=== PATIENT | female | born 1990 | race Caucasian/White ===

== ENCOUNTER 2016-11-05 17:29 | Emergency (ER) | payer OTHER ==
[2016-11-05 17:41] VITALS: BP 131/96
--- NOTE | 2016-11-05 18:42 | UC ---
Complaint Female HPI - HPI Summary HPI Summary: MILD URINARY PRESSURE AND FREQUENCY FOR TWO DAYS. NO FEVER. NO ABDOMINAL PAIN. NO BACK PAIN. - History Of Current Complaint Chief Complaint: UCGU Stated Complaint: POSS UTI Time Seen by Provider: 11/05/16 17:48 Hx Obtained From: Patient Hx Last Menstrual Period: 10/12/16 Onset/Duration: Gradual Onset, Lasting Days, Still Present Timing: Intermittent Severity Initially: Mild Severity Currently: Mild Character: Dull, Cramping Aggravating Factor(s): Urination Associated Signs And Symptoms: Negative: Fever, Back Pain, Vaginal Bleeding/ Discharge, Nausea, Vomiting(# Of Episodes =) - Risk Factors Ectopic Risk Factor: Negative - Allergies/Home Medications Allergies/Adverse Reactions: Allergies Allergy/AdvReac Type Severity Reaction Status Date / Time No Known Allergies Allergy Verified 11/05/16 17:41 Home Medications: Home Medications NK [No Home Medications Reported] 11/05/16 [History Confirmed 11/05/16] PMH/Surg Hx/FS Hx/Imm Hx Previously Healthy: Yes - Surgical History Surgical History: None - Family History Known Family History: Positive: Unknown - MOTHER WAS MANDAEN MORPHOLOGIST - Social History Lives: With Family Alcohol Use: Rare Substance Use Type: None Smoking Status (MU): Never Smoked Tobacco Review of Systems Constitutional: Negative Skin: Negative Eyes: Negative ENT: Negative Respiratory: Negative Cardiovascular: Negative Gastrointestinal: Negative Genitourinary: Dysuria, Urgency Motor: Negative Neurovascular: Negative Musculoskeletal: Negative Neurological: Negative Psychological: Negative All Other Systems Reviewed And Are Negative: Yes Physical Exam Triage Information Reviewed: Yes Appearance: Well-Appearing, No Pain Distress, Well-Nourished Vital Signs: Initial Vital Signs Temp 99.0 F 11/05/16 17:39 Pulse 106 11/05/16 17:39 Resp 18 11/05/16 17:39 BP 131/96 11/05/16 17:39 Pulse Ox 99 11/05/16 17:39 Vital Signs Reviewed: Yes Eye Exam: Normal ENT Exam: Normal ENT: Positive: Normal ENT inspection, Hearing grossly normal, Pharynx normal, TMs normal Dental Exam: Normal Neck exam: Normal Neck: Positive: Supple, Nontender, No Lymphadenopathy Respiratory Exam: Normal Respiratory: Positive: Chest non-tender, Lungs clear, Normal breath sounds, No respiratory distress, No accessory muscle use Cardiovascular Exam: Normal Cardiovascular: Positive: RRR, No Murmur, Pulses Normal, Brisk Capillary Refill Abdominal Exam: Normal Abdomen Description: Positive: Nontender, No Organomegaly. Negative: CVA Tenderness (R), CVA Tenderness (L) Musculoskeletal Exam: Normal Neurological Exam: Normal Psychological Exam: Normal Skin Exam: Normal Complaint Female Dx - Differential Dx/Diagnosis Differential Diagnosis/HQI/PQRI: Renal Colic, Ureteral Stone, Urinary Tract Infection Provider Diagnoses: DYSURIA Discharge - Discharge Plan Condition: Stable Disposition: HOME Patient Education Materials: Kidney Stones (ED), Dysuria (ED) Referrals: [facility] [Outside] Additional Instructions: PLEASE SEEK EVALUATION AT THE EMERGENCY DEPARTMENT IF YOUR SYMPTOMS WORSEN, OR IF NEW SYMPTOMS DEVELOP.
== END 2016-11-05 18:40 | disposition home or self-care (01) ==
LOC: UCEAST 17:29
DX: R30.0 Dysuria (principal)
CPT/HCPCS: 81003; 99201; G0463

== ENCOUNTER 2017-12-17 19:37 | Emergency (ER) | payer OTHER ==
[2017-12-17 20:10] VITALS: BP 110/73
--- NOTE | 2017-12-17 20:13 | UC ---
Throat Pain/Nasal Jamie HPI - HPI Summary HPI Summary: 27 yo female presents with a sore throat and headache for the last 2 days. She is concerned because her daughter was dx'd with strep throat today. Pt denies fever, chills, cough, SOB, chest pain, or rash. - History of Current Complaint Chief Complaint: UCGeneralIllness Stated Complaint: ST,FATIGUE,HEADACH Time Seen by Provider: 12/17/17 20:13 Hx Obtained From: Patient Hx Last Menstrual Period: 11/19/17 Onset/Duration: Sudden Onset Severity: Moderate Pain Intensity: 5 Pain Scale Used: 0-10 Numeric - Allergies/Home Medications Allergies/Adverse Reactions: Allergies Allergy/AdvReac Type Severity Reaction Status Date / Time No Known Allergies Allergy Verified 12/17/17 20:10 PMH/Surg Hx/FS Hx/Imm Hx - Additional Past Medical History Additional PMH: None - Surgical History Surgical History: Yes Surgery Procedure, Year, and Place: [facility] - Family History Known Family History: Positive: Unknown - MOTHER WAS [employer] INSPECTOR [employer] - Social History Occupation: Employed Full-time Lives: With Family Alcohol Use: Rare Substance Use Type: None Smoking Status (MU): Never Smoked Tobacco Review of Systems Constitutional: Fatigue Skin: Negative Eyes: Negative ENT: Sore Throat Respiratory: Negative Cardiovascular: Negative Gastrointestinal: Negative Neurovascular: Negative Musculoskeletal: Negative Neurological: Headache Psychological: Negative All Other Systems Reviewed And Are Negative: Yes Physical Exam - Summary Physical Exam Summary: GENERAL: NAD. Mildly ill appearing SKIN: No rashes, sores, lesions, or open wounds. HEENT: Head: AT/NC Eyes: Conjunctiva clear without inflammation or discharge. Ears: Hearing grossly normal. TMs intact, no bulging, erythema, or edema. Nose: Nasal mucosa pink and moist. NTTP maxillary and frontal sinus. Throat: Posterior oropharynx moderate erythema. No tonsillar enlargement. No exudates. Uvula midline. No hoarse voice or muffled voice. NECK: Supple. Mildly tender tonsillar LAD CHEST: CTAB. No r/r/w. No accessory muscle use. Breathing comfortably and in no distress. CV: RRR. Without m/r/g. Pulses intact. Brisk cap refill. NEURO: Alert. CN II-XII grossly intact. PSYCH: Age appropriate behavior. Triage Information Reviewed: Yes Vital Signs: Initial Vital Signs Temp 99.2 F 12/17/17 20:06 Pulse 94 12/17/17 20:06 Resp 18 12/17/17 20:06 BP 110/73 12/17/17 20:06 Pulse Ox 100 12/17/17 20:06 Laboratory Tests 12/17/17 20:32 Group A Strep Rapid Negative Vital Signs Reviewed: Yes Throat Pain/Nasal Course/Dx - Course Course Of Treatment: POC strep negative. Given pt's symptoms and exposure to strep, there is a high suspicion for strep pharyngitis. Pt was agreeable to taking tylenol/ibuprofen and monitoring her symptoms for another 2-3 days...if no improvement she will begin anbx. - Differential Dx/Diagnosis Provider Diagnoses: Pharyngitis Discharge - Sign-Out/Discharge Documenting (check all that apply): Patient Departure - Discharge Plan Condition: Stable Disposition: HOME Prescriptions: Amoxicillin PO (*) [Amoxicillin 500 MG CAP*] 500 mg PO Q12H #14 cap Patient Education Materials: Pharyngitis (ED) Referrals: Lori Manning MD [Primary Care Provider] - Additional Instructions: If you develop a fever, shortness of breath, chest pain, new or worsening symptoms - please call your PCP or go to the ED. - Billing Disposition and Condition Condition: STABLE Disposition: Home
== END 2017-12-17 21:00 | disposition home or self-care (01) ==
LOC: UCEAST 19:37
DX: J02.9 Acute pharyngitis, unspecified (principal); R53.83 Other fatigue
CPT/HCPCS: 87651; 99211; G0463

== ENCOUNTER 2018-01-29 00:19 | Emergency (ER) | payer OTHER ==
[2018-01-29 01:01] LABS: ABS Basophils 0.1 10^3/ul (0-0.2); ABS Eosinophils 0.2 10^3/ul (0-0.6); ABS Lymphocytes 3.1 10^3/ul (1.0-4.8); ABS Monocytes 0.5 10^3/ul (0-0.8); ABS Neutrophils 1.9 10^3/ul (1.5-7.7); ABS Nucleated RBC 0 10^3/ul; Eosinophil % 4.2 % (0-6); Hematocrit 39 % (35-47); Hemoglobin 13.5 g/dl (12.0-16.0); Lymphocyte % 52.7 % (25-47); Mean Corpuscular HGB Conc 35 g/dl (31-36); Mean Corpuscular Hemoglobin 32 pg (27-31); Mean Corpuscular Volume 92 fL (80-97); Nucleated Red Blood Cells % 0; Platelet Count 230 10^3/ul (150-450); Red Blood Count 4.24 10^6/ul (4.00-5.40); Red Cell Distribution Width 13 % (10.5-15); White Blood Count 5.8 10^3/ul (3.5-10.8)
[2018-01-29] MEDS ORDERED: Lidocaine 2% VISCOUS* 15 ML UDC PO ONE (01:05)
[2018-01-29] MEDS ORDERED: Famotidine TAB* 20 MG PO ONE (01:05)
[2018-01-29] MEDS ORDERED: Al Hydrox/Mg Hydrox/Simet LIQ* 30 ML UDC PO ONE (01:05)
--- NOTE | 2018-01-29 01:06 | ED ---
Abdominal Pain/Female - HPI Summary HPI Summary: Pt is a 27 y/o female who presents to the ED c/o abdominal pain. She states she s had the pain for a few days now, and it is worsening. The pain is 5/10 in severity and is exacerbated by lying flat. The pain is located in her upper abdomen, and feels like pressure and pinching. She also c/o nausea and constipation. Pt was able to burp and pass gas yesterday, but now feels bloated. She has not had a BM since yesterday. Pt denies any dysuria, fever, shakes, chills, or decreased appetite. She states that it feels harder to swallow food now. She denies any injury to her abdomen. FHx GERD. No PMHx of ovarian cysts, pancreatitis, or cholecystitis. LKMP 4 weeks ago. - History of Current Complaint Chief Complaint: EDAbdPain Stated Complaint: ABD PAIN Time Seen by Provider: 01/29/18 00:49 Hx Obtained From: Patient Hx Last Menstrual Period: 11/19/17 ?: No Onset/Duration: Gradual Onset, Lasting Days - 2-3, Worse Since Timing: Constant Severity Currently: Moderate Pain Intensity: 5 Pain Scale Used: 0-10 Numeric Location: Other - Upper abdomen Radiates: No Character: Other: - Pressure, pinching Aggravating Factor(s): Other: - Lying flat Alleviating Factor(s): Nothing Associated Signs and Symptoms: Positive: Constipation, Nausea. Negative: Fever , Urinary Symptoms, Decreased Appetite Allergies/Adverse Reactions: Allergies Allergy/AdvReac Type Severity Reaction Status Date / Time No Known Allergies Allergy Verified 12/17/17 20:10 PMH/Surg Hx/FS Hx/Imm Hx Endocrine/Hematology History: Denies: Hx Diabetes, Hx Thyroid Disease Cardiovascular History: Denies: Hx Hypertension Respiratory History: Denies: Hx Asthma, Hx Chronic Obstructive Pulmonary Disease (COPD) GI History: Denies: Hx Gall Bladder Disease, Hx Ulcer History: Denies: Other Problems/Disorders - Ovarian cysts - Surgical History Surgery Procedure, Year, and Place: [facility] Infectious Disease History: No Infectious Disease History: Denies: Hx Hepatitis, Hx Human Immunodeficiency Virus (HIV), Traveled Outside the [place] in Last 30 Days - Family History Known Family History: Positive: Other - GERD - Social History Alcohol Use: Rare Hx Substance Use: No Substance Use Type: Reports: None Hx Tobacco Use: No Smoking Status (MU): Never Smoked Tobacco Review of Systems Negative: Fever, Chills Positive: Abdominal Pain, Nausea, Other - constipation, NEGATIVE: decreased appetite Negative: dysuria All Other Systems Reviewed And Are Negative: Yes Physical Exam - Summary Physical Exam Summary: Appearance: Well appearing, no pain distress Skin: warm, dry, reflects adequate perfusion Head/face: normal Eyes: EOMI, JO ENT: normal Neck: supple, non-tender Respiratory: CTA, breath sounds present Cardiovascular: RRR, pulses symmetrical Abdomen: non-tender, soft, no CVA tenderness Bowel Sounds: present Musculoskeletal: normal, strength/ROM intact Neuro: normal, sensory motor intact, A&Ox3 Triage Information Reviewed: Yes Vital Signs On Initial Exam: Initial Vitals Temp Pulse Resp BP Pulse Ox 98.4 F 103 18 133/97 100 01/29/18 00:21 01/29/18 00:21 01/29/18 00:21 01/29/18 00:21 01/29/18 00:21 Vital Signs Reviewed: Yes Diagnostics - Vital Signs Vital Signs Temp Pulse Resp BP Pulse Ox 01/29/18 00:21 98.4 F 103 18 133/97 100 - Laboratory Result Diagrams: 01/29/18 00:54 01/29/18 00:54 Lab Statement: Any lab studies that have been ordered have been reviewed, and results considered in the medical decision making process. - Radiology Abdomen XR Xray Interpretation: Positive (See Comments) - Increased stool burden. Pending official radiology report. Radiology Interpretation Completed By: ED Physician Abdominal Pain Fem Course/Dx - Course Course Of Treatment: Patient with left upper quadrant abdominal tenderness that is mild in nature. He has been associated with some mild heartburn. She received oral medications for this with some relief. She also had an x-ray consistent for possible constipation as well. We will treat both. Her laboratories are benign. Abdomen is nonsurgical. Discharged in good condition. - Diagnoses Differential Diagnosis: Positive: Constipation, Diverticulitis, Gall Bladder Disease, Pancreatitis, Peptic Ulcer Disease, Provider Diagnoses: Constipation, Gastritis Discharge - Sign-Out/Discharge Documenting (check all that apply): Patient Departure - Discharge - Discharge Plan Condition: Stable Disposition: HOME Prescriptions: Famotidine TAB* [Pepcid 20 MG TAB*] 20 mg PO BID PRN #20 tab PRN Reason: Heartburn Omeprazole CAP* [Prilosec CAP* 20 MG] 20 mg PO BEDTIME #30 jose. Polyethylene Glycol 3350 BTL* [Miralax] 17 gm PO TID PRN #1 btl PRN Reason: Constipation Sucralfate [Carafate] 1 gm PO QID PRN #40 tablet PRN Reason: stomach pain Patient Education Materials: Gastritis (ED) Referrals: Lori Manning MD [Primary Care Provider] - Additional Instructions: Tylenol as needed for discomfort. Avoid aspirin, Aleve, ibuprofen and alcohol. Return with vomiting blood, increased pain, fever, new symptoms or other concerns as discussed. - Billing Disposition and Condition Condition: STABLE Disposition: Home - Attestation Statements Document Initiated by Mercedes: Yes Documenting Scribe: Myra Forte Provider For Whom Leslyee is Documenting (Include Credential): Rob Quevedo MD Scribe Attestation: Myra Vieira, scribed for Rob Quevedo MD on 01/29/18 at 0219. Scribe Documentation Reviewed: Yes Provider Attestation: The documentation as recorded by the Myra gould accurately reflects the service I personally performed and the decisions made by , Rob Quevedo MD
[2018-01-29 02:25] VITALS: BP 120/79
--- NOTE | 2018-01-29 07:53 | RAD ---
INDICATION: Left lower quadrant abdominal pain. COMPARISON: There are no relevant prior studies available for comparison. TECHNIQUE: A single frontal supine film of the abdomen was obtained. FINDINGS: The small bowel and colon appear nondistended. There is a moderate amount retained stool present. There are couple small calcific densities which project over the pelvis on the right side likely representing phleboliths. IMPRESSION: NO EVIDENCE FOR OBSTRUCTION. R0
== END 2018-01-29 02:25 | disposition home or self-care (01) ==
LOC: ED 00:19
DX: K59.00 Constipation, unspecified (principal); K29.70 Gastritis, unspecified, without bleeding; R10.9 Unspecified abdominal pain; R11.0 Nausea
CPT/HCPCS: 36415; 74018; 80053; 83605; 83690; 84702; 85025; 86140; 99283; A9270-GY

== ENCOUNTER 2019-03-15 16:35 | Emergency (ER) | payer OTHER ==
--- OUTSIDE RECORDS SUMMARY | 2019-03-15 16:40 | XMS REPORT | Continuity of Care Document ---
:1990 External Reference #:[id number] Author Name Sara Myers PA-C Address [address] [place] [id number] Care Team Providers Name Role Phone Afsaneh Lauren NP Care Team Information Care Transition Coordinator [phone] Lori Manning MD Care Team Information Care Transition Coordinator [phone] Problems Active Problems Provider Date Digestive symptom Sara Myers PA-C Onset: 12/23/2018 Sore throat symptom Sara Myers PA-C Onset: 12/23/2018 Abdominal pain Sara Myers PA-C Onset: 12/23/2018 Gastro-esophageal reflux disease with Sara Myers PA-C Onset: 08/20 esophagitis Epigastric pain Sara Myers PA-C Onset: 04/29/2018 Enterobiasis Sara Myers PA-C Onset: 03/13/2018 Gastroduodenitis Sara Myers PA-C Onset: 03/13/2018 Left upper quadrant pain Sara Myers PA-C Onset: 03/13/2018 Gastroesophageal reflux disease Sara Myers PA-C Onset: 03/13/2018 Social History Type Date Description Comments Sex Unknown Tobacco Use Start: Unknown Patient has never smoked Smoking Status Reviewed: 12/23/18 Patient has never smoked Allergies, Adverse Reactions, Alerts Description No Known Drug Allergies Medications Active Medications SIG Qnty Indications Ordering Provider Date Omeprazole 1 by mouth 30caps K21.9 Syed Ch DO 12/23/[address] Romano 1 by mouth bid 60tabs K21.0 Sandra 08/20/2018 40mg Tablets MD Kallie Immunizations Description No Information Available Vital Signs Date Vital Result Comment 12/23/2018 9:39am Height 66 inches 5'6" Weight 121.00 lb BMI (Body Mass Index) 19.5 kg/m2 08/20/2018 2:14pm Height 66 inches 5'6" Weight 126.00 lb BP Systolic 126 mmHg BP Diastolic 80 mmHg Heart Rate 97 /min BMI (Body Mass Index) 20.3 kg/m2 Results Test Date Facility Test Result H/L Range Note Laboratory test [facility] Breath Test NEGATIVE finding [address] [place] [id number] [phone] Laboratory test [facility] Pancreatic 494 g/G 1 finding 9 Elastase-1 Stool 1 Adult and Pediatric Reference Ranges for Pancreatic Elastase-1: Normal: >200 mcg/g Moderate Pancreatic Insufficiency: 100-200 mcg/g Severe Pancreatic Insufficiency: <100 mcg/g Elastase-1 (E-1) assay results are expressed in mcg/g, which represent mcg E1/g feces. It is not necessary to interrupt enzyme substitution therapy. Test Performed by: [facility]/[address] [address] Procedures Date Code Description Status 12/30/2018 52764 Breath Hydrogen Completed Medical Devices Description No Information Available Encounters Type Date Location Provider Dx Diagnosis Office Visit 12/23/2018 [facility]enter[facility] Sara Frank R10.10 Upper abdominal 9:45a [facility], pain, unspecified DOMINICK R07.0 Pain in throat R19.4 Change in bowel habit Office Visit 08/20/2018 Mary Frank R10.13 Epigastric pain 2:15p [facility] PA-C K21.0 Gastro-esophageal reflux disease with esophagitis R10.12 Left upper quadrant pain K29.70 Gastritis, unspecified, without bleeding Assessments Date Code Description Provider 12/30/2018 R10.13 Epigastric pain Sara Myers PA-C 12/30/2018 R10.12 Left upper quadrant pain Sara Myers, PA-C 12/30/2018 K21.0 Gastro-esophageal reflux disease with Sara Frank Lucia PA-C esophagitis 12/23/2018 R10.10 Upper abdominal pain, unspecified Sara Frank Lucia PA -C 12/23/2018 R07.0 Pain in throat Sara Frank BLAS Myers-C 12/23/2018 R19.4 Change in bowel habit Sara PhilipBLAS [place]-C 08/20/2018 R10.13 Epigastric pain Sara PalaciosRanulfo Myers PA-C 08/20/2018 K21.0 Gastro-esophageal reflux disease with Sara LTWAN Gil[place]C esophagitis 08/20/2018 R10.12 Left upper quadrant pain Sara Frank Lucia PA-C 08/20/2018 K29.70 Gastritis, unspecified, without bleeding Sara Myers PA-C Plan of Treatment No Information Available Functional Status Description No Information Available Mental Status Description No Information Available Referrals Description No Information Available
--- OUTSIDE RECORDS SUMMARY | 2019-03-15 16:40 | XMS REPORT | Continuity of Care Document ---
:1990 External Reference #:[id number] Author Name Lori Manning M.D. Address [address] [facility] [place] [address] Care Team Providers Name Role Phone Lori Manning M.D. - Family Medicine Care Team Information Pumper Gauger Unavailable Problems Active Problems Provider Date Gastroesophageal reflux disease Lori Manning M.D. Onset: 02/25/2019 Irritable bowel syndrome Lori Manning M.D. Onset: 02/25/2019 Resolved Problems Epigastric pain Chapo Marti M.D. Onset: 12/18/2018 Resolved: 02/25/2019 Acute gastritis Chapo Marti M.D. Onset: 12/18/2018 Resolved: 02/25/2019 Social History Type Date Description Comments Sex Unknown Tobacco Use Start: Unknown Never Smoked Cigarettes Smoking Status Reviewed: 02/25/19 Never Smoked Cigarettes ETOH Use Denies alcohol use Recreational Drug Use Denies Drug Use Tobacco Use Start: Unknown Nonsmoker Exercise Type/Frequency Exercises regularly cycle, running 4x Allergies, Adverse Reactions, Alerts Description No Known Drug Allergies Medications Active Medications SIG Qnty Indications Ordering Provider Date Famotidine take one tablet Unknown 20mg Tablets by mouth twice a day Omeprazole 1 by mouth every Unknown 40mg Capsules day DR History Medications Nuvaring insert one ring 3units Z30.09 09/09/2018 - 0.12-0.015mg/24HR vaginally, SRINIVAS Chapa 02/25/2019 Ring retain x 3 weeks, then remove, allow withdrawal bleed, and reinsert new ring sun after menses Immunizations Description No Information Available Vital Signs Date Vital Result Comment 02/25/2019 1:04pm BP Systolic 120 mmHg BP Diastolic 76 mmHg Heart Rate 78 /min Body Temperature 98.3 F Respiratory Rate 16 /min Height 66.5 inches 5'6.50" Weight 121.00 lb BMI (Body Mass Index) 19.2 kg/m2 12/18/2018 9:48am BP Systolic 108 mmHg BP Diastolic 60 mmHg Heart Rate 78 /min Body Temperature 98.8 F Respiratory Rate 16 /min Height 66 inches 5'6" Weight 120.38 lb BMI (Body Mass Index) 19.4 kg/m2 Results Test Date Facility Test Result H/L Range Note Comprehensive Metabolic 10/29/2018 Omar Miya(a) Sodium 137 mEq/L 134-149 Prof Potassium 4.5 mEq/L 3.6-5.5 Chloride 99 mEq/L 94-112 Carbon Dioxide 24 mEq/L 21-32 Glucose 93 mg/dL 70-105 BUN 13 mg/dL 6-26 Creatinine 0.8 mg/dL 0.6-1.4 BUN/Creat Ratio 16.3 CALC 8.0-36.0 Calcium 9.4 mg/dL 8.6-10.2 Total Protein 7.4 g/dL 6.4-8.3 Albumin 4.6 g/dL 3.8-5.5 Globulin 2.8 g/dL 2.0-4.8 A/G Ratio 1.6 CALC 0.6-2.3 Alk. Phosphatase 37 U/L 30-110 Alt (SGPT) 12 U/L 7-35 Ast (Sgot) 22 U/L 5-34 Total Bilirubin 0.7 mg/dL 0.2-1.3 GFR Non- >60 ml/min/1.73m^ >=60 GFR >60 ml/min/1.73m^ >=60 Lipid Profile 10/29/2018 Omar Miya(a) Cholesterol 139 mg/dL 120- 200 Triglycerides 70 mg/dL 30-200 HDL Cholesterol 57 mg/dL 30-85 LDL (Calculated) 68 CALC 0-129 VLDL Cholesterol 14 mg/dL 0-50 HDL Risk Factor 2.4 CALC 0.0-4.4 CBC Electronic Fma 10/29/2018 Omar Miya(a) WBC 4.0 x10^3/UL 4.0- 10.0 RBC 4.23 x10^6/UL 3.93-6.00 HGB 13.5 g/dL 12.0-17.0 HCT 39 % 35-50 MCV 92.0 fL 80.0-95.0 MCH 31.9 pg 25.6-32.2 MCHC 34.7 g/dL 32.2-36.0 RDW-CV 12.5 % 11.6-14.4 PLT 232 x10^3/UL 163-400 MPV 9.3 fL Low 9.4-12.4 Megan# 1.61 x10^3/UL 1.56-6.13 Lymph# 1.87 x10^3/UL 1.18-3.74 Pleasants# 0.41 x10^3/UL 0.24-0.82 Eos # 0.1 x10^3/UL 0.0-0.5 Baso # 0.02 x10^3/UL 0.01-0.08 Megan% 39.9 % 34.0-70.0 Lymph % 46.4 % 20.0-52.0 Pleasants% 10.2 % 5.0-12.0 Eos% 3.0 % 0.7-7.0 Baso% 0.5 % 0.1-1.2 Procedures Description No Information Available Medical Devices Description No Information Available Encounters Type Date Location Provider Dx Diagnosis Office Visit 12/18/2018 [facility] Chapo Marti, R10.13 Epigastric pain 9:40a Rocco K29.00 Acute gastritis without bleeding Office Visit 10/22/2018 4:00p [facility] 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 examination without abnormal findings 02/25/2019 K58.9 Irritable bowel syndrome without diarrhea Lori Manning M.D. 02/25/2019 K21.9 Gastro-esophageal reflux disease without Lori Manning M.D. esophagitis 02/25/2019 L65.9 Nonscarring hair loss, unspecified Lori Manning M.D. 02/25/2019 L29.9 Pruritus, unspecified Lori Manning M.D. 12/18/2018 R10.13 Epigastric pain Chapo Marti M.D. 12/18/2018 K29.00 Acute gastritis without bleeding Chapo Marti M.D. 10/29/2018 Z00.00 Encntr for general adult medical exam w/o Lori Manning M.D. abnormal findings 10/22/2018 G44.84 Primary exertional headache SRINIVAS Simmons 10/22/2018 Z30.40 Encounter for surveillance of SRINIVAS Simmons contraceptives, unspecified 09/09/2018 Z30.09 Encounter for other general counseling and SRINIVAS Simmons advice on contrac Plan of Treatment 02/25/2019 - Lori Manning M.D.Z00.00 Encounter for general adult medical examination without abnormal findingsComments:Encourage an active and healthy lifestyle with proper eating habits including fruits, vegetables, 6-8 glasses of water a day and monitoring portion size. Recommend 30 minutes of daily physical activityincluding walking, aerobic exercise, sports, yoga or dance. Any activity is better than no activity.Recommend routine eye and dental exams. Next physical is due in 1-2 years. Recommend annual influenza [id number] Irritable bowel syndrome without diarrheaComments:FODMAP dietK21.9 Gastro-esophageal reflux disease without esophagitisComments:stable on regimen, call if symptoms [id number] Nonscarring hair loss, unspecifiedComments:can be normal stopping control; call if persistent for another 3 months, take women's multi dlnewxeU13.9 Pruritus, unspecifiedComments:try spray deodorant to minimize perspiration, possible sweat exacerbating; call if persistent, ok touse steroid cream sparingly, no more than a week at timeAllComments:Medication Management Patient Understands medications she's taking? Yes No Are there Barriers to Adherence? Yes No Has the patient been asked about herbal supplements and therapies, and OTC meds? Yes No The patient was instructed to call if symptoms of abdominal pain worsen. Functional Status Description No Information Available Mental Status Description No Information Available Referrals Description No Information Available
--- OUTSIDE RECORDS SUMMARY | 2019-03-15 16:40 | XMS REPORT | Continuity of Care Document ---
:1990 External Reference #:[id number] Author Name Sean Suazo M.D. 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 Onset: 10/11/2016 Vitreous opacities Sean Suazo M.D. Onset: 10/11/2016 Myopia Sean Suazo M.D. Onset: 10/11/2016 Internal hordeolum Sean Suazo M.D. Onset: 10/11/2016 Social History Type Date Description Comments Sex Unknown ETOH Use Denies alcohol use Tobacco Use Start: Unknown Patient has never smoked Smoking Status Reviewed: 01/22/19 Patient has never smoked Allergies, Adverse Reactions, Alerts Description No Known Drug Allergies Medications Active Medications SIG Qnty Indications Ordering Provider Date Allergy Eye Drops 1 drop both eyes Sean Suazo, 10/10/2016 0.025% twice a day as M.D. Solution needed Ortho Tri-Cyclen Lo Unknown 0.18/0.215/0.25 mg-25 mcg Tablets Clotrimazole Unknown 1% Cream Omeprazole Take 1 Capsule By Unknown 40mg Capsules Mouth Every Day DR 30 Minutes Before A Meal Immunizations Description No Information Available Vital Signs Description No Information Available Results Description No Information Available Procedures Description No Information Available Medical Devices Description No Information Available Encounters Description No Information Available Assessments Date Code Description Provider 01/22/2019 H43.392 Other vitreous opacities, left eye Sean Suazo M.D. 01/22/2019 H52.13 Myopia, bilateral Sean Suazo M.D. Plan of Treatment 01/22/2019 - Sean Suazo M.D.H43.392 Other vitreous opacities, left eyeComments:Smoking can increase the risk of developing or worsening any eye related disease, as well as affect your overall health. If you are a smoker, we strongly recommend that you quit.If you are not a smoker, we strongly recommend that you do not start. You have Vitreous Floaters. If you have any new or changes in your floaters or flashing lights, please contact this office.Follow up:2 Year Follow Up DFE You can expect to have your eyes dilated at your next visit. If Dr. Suazo orders any additional testing, it may require extra time. We recommend that you bring sunglasses, as dilation drops often make you light sensitive until they wear off. We always recommend you bring someone to drive you home if you are uncomfortable driving with your eyes dilated. If you have any questions before your next visit, feel free to call our office at .H52.13 Myopia, bilateralComments:You have Myopia, or near sightedness. I have given you a prescription for glasses. Functional Status Description No Information Available Mental Status Description No Information Available Referrals Description No Information Available
[2019-03-15 16:51] VITALS: BP 148/94
--- NOTE | 2019-03-15 16:52 | UC ---
Bite Injury/Animal HPI - HPI Summary HPI Summary: Patient is a 28yo female presenting with dog bite to L middle finger that happened an hour and a half before arriving she was on a run. Patient states the dog was being walked on a leash when she ran past and it bit her. Notes it broke the skin on her finger and bruised the index finger but did not break skin. States the middle finger bled immediately but she has got it to stop. Patient denies decreased range of motion in finger. Denies numbness and tingling. Denies redness and warmth. Patient is unsure of last tetanus shot. The patient states that the precision layout worker of the dog says the dog's vaccines are all up- to-date. States that she received the precision layout worker's information and has it written down for us because she does not trust that vaccines are up-to-date. - History of Current Complaint Stated Complaint: DOG BITE Hx Obtained From: Patient Hx Last Menstrual Period: 11/19/17 Severity Currently: Moderate Severity Initially: Mild Pain Intensity: 2 Pain Scale Used: 0-10 Numeric - Allergies/Home Medications Allergies/Adverse Reactions: Allergies Allergy/AdvReac Type Severity Reaction Status Date / Time No Known Allergies Allergy Verified 12/17/17 20:10 PMH/Surg Hx/FS Hx/Imm Hx Previously Healthy: Yes - Surgical History Surgical History: None Surgery Procedure, Year, and Place: wisdom teeth - Family History Known Family History: Positive: Unknown - MOTHER WAS [employer], Other - GERD - Social History Alcohol Use: Rare Substance Use Type: None Smoking Status (MU): Never Smoked Tobacco - Immunization History Most Recent Tetanus Shot: 8 years ago Review of Systems All Other Systems Reviewed And Are Negative: No Constitutional: Positive: Negative Respiratory: Positive: Negative Cardiovascular: Positive: Negative Gastrointestinal: Positive: Negative Neurovascular: Positive: Negative Musculoskeletal: Positive: Arthralgia. Negative: Decreased ROM, Edema Neurological: Negative: Weakness, Paresthesia, Numbness Physical Exam Triage Information Reviewed: Yes Appearance: Well-Appearing, No Pain Distress, Well-Nourished Vital Signs: Initial Vital Signs Temp 98.7 F 03/15/19 16:43 Pulse 73 03/15/19 16:43 Resp 16 03/15/19 16:43 BP 148/94 03/15/19 16:43 Pulse Ox 100 03/15/19 16:43 Vital Signs Reviewed: Yes Eyes: Positive: Conjunctiva Clear ENT: Positive: Hearing grossly normal Neck: Positive: Supple Respiratory: Positive: No respiratory distress Cardiovascular: Positive: Pulses Normal - Strong radial pulses bilaterally, Brisk Capillary Refill Musculoskeletal: Positive: Strength Intact, ROM Intact, No Edema Neurological Exam: Other - Sensation grossly intact Neurological: Positive: Alert Psychological: Positive: Age Appropriate Behavior Skin: Positive: Other - 0.5 cm laceration noted over the dorsal knuckle of left middle finger. No active bleeding. No sign of infection. Bite Injury Course/Dx - Course Course Of Treatment: The patient's wound was irrigated and a dressing was applied. Finger splint was also applied to help immobilize finger so the skin to heal. Patient received tetanus booster here. She also received the first dose of Augmentin here and was sent home with prescription for the rest. The health department was also notified of the situation and given the precision layout worker's information as well as the patient's information. Health Department states they will be following up with the patient tomorrow and no rabies treatment is required tonight. I educated the patient on signs and symptoms of infected animal bite and instructed her to return or go to emergency room if they occur. Patient voiced understanding and agreed with the treatment plan. - Differential Dx/Diagnosis Provider Diagnosis: Dog bite of middle finger Discharge ED - Sign-Out/Discharge Documenting (check all that apply): Patient Departure All imaging exams completed and their final reports reviewed: No Studies - Discharge Plan Condition: Stable Disposition: HOME Prescriptions: Amoxicillin/Clavulanate TAB* [Augmentin TAB 875*] 875 mg PO BID #9 tab Patient Education Materials: Diphtheria/Acellular Pertussis/Tetanus Booster Vaccine (By injection), Animal Bite (ED) Referrals: Lori Manning MD [Primary Care Provider] - If Needed Additional Instructions: As discussed, take Augmentin as prescribed to prevent infection of your dog bite. You had the first dose tonight at 5:30. Keep the area clean and dry. Keep the finger immobilized as much as possible over the next few days to allow the skin to heal. Return or go to the emergency room if you experience increasing redness and warmth of the area, drainage, severe pain, inability to move the finger, fever, or nausea and vomiting. The Health Department has been contacted and is aware of your situation. They will be contacting you tomorrow with further information. If they fail to call, you may call them at [phone]. You received a tetanus booster today. You may experience soreness at the injection site. This is normal and should resolve within a few days. - Billing Disposition and Condition Condition: STABLE Disposition: Home - Attestation Statements Provider Attestation: I was available for consult. This patient was seen by the SH[facility]. The patient was not presented to, seen by, or examined by me. -Dominguez
[2019-03-15] MEDS ORDERED: Tetan/Diph/Pertus SYR(Tdap)* 0.5 ML SYR(BOOSTRIX) use SYR contains LATEX IM ONE (17:04)
[2019-03-15] MEDS ORDERED: Amoxicillin/Clavulanate TAB* 875 MG PO ONE (17:11)
== END 2019-03-15 17:27 | disposition home or self-care (01) ==
LOC: UCEAST 16:35
DX: S61.253A Open bite of left middle finger without damage to nail, initial encounter (principal); W54.0XXA Bitten by dog, initial encounter; Y92.9 Unspecified place or not applicable
CPT/HCPCS: 90471; 90715; 99213; A9270-GY; G0463